=== PATIENT | male | born 1955 | race American Indian/Alaskan Native ===

== ENCOUNTER 2016-10-25 03:12 | Emergency (ER) | payer SELFPAY ==
[2016-10-25 04:15] LABS: Bilirubin,Urine NEG (Negative); Blood,Urine NEG (Negative); Ketones,Urine NEG (Negative); Leukocyte Esterase,Urine NEG (Negative); Mucus,Urine FEW /HPF; Nitrite,Urine NEG (Negative); Protein,Urine <15 mg/dL mg/dL (Negative); Urobilinogen,Urine < 2.0 mg/dL (<2.0)
[2016-10-25 07:21] VITALS: BP 125/83
--- NOTE | 2016-10-25 09:27 | Emergency Department Report ---
HPI - General Chief Complaint: Urogenital-Male Time Seen by Provider: 10/25/16 07:43 - HPI HPI: Chief complaint: Urinary retention HPI: Patient with a history of benign prostatic hypertrophy who had his Smith catheter removed on Saturday after having it for less than a week states that last night about 8 PM he started dribbling and pain increased to the point where he felt nauseous and therefore he came to the emergency department. Smith catheter was placed in triage with significant relief and 700 mL of urine output. Patient is being followed by Dr. Washington. Patient states he has been taking his Flomax. Mode of arrival: [private car] Source: [Patient] Began: see above Duration: continuous Context: see above Quality: Pressure Severity: now 0 out of 10 Improved with:catheter placement Worsened with: nothing Associated signs and symptoms:nausea ED Past Medical Hx - Past Medical History Previous Medical History?: Yes Hx Hypertension: Yes Additional medical history: ENLARGED PROSTATE - Surgical History Past Surgical History?: No - Social History Smoking Status: Never Smoker Substance Use Type: None - Medications Home Medications: Home Medications Medication Instructions Recorded Confirmed Last Taken Type Lisinopril [Zestril TAB] 40 mg PO QDAY 10/25/16 10/25/16 10/24/16 History Tamsulosin [Flomax] 0.4 mg PO QDAY 10/25/16 10/25/16 10/24/16 History ED Review of Systems ROS: Stated complaint: UNABLE TO URINATE Other details as noted in HPI ROS Constitutional: No fever ENT: No uri symptoms Cardiovascular: No chest pain Respiratory: No sob or cough GI: No nausea vomiting or diarrhea : See HPI Skin: No rash Neuro: No focal weakness or numbness Psych: No depression Alfonso/lymph: No edema Physical Exam - Physical Exam Vital Signs: Vital Signs 10/25/16 10/25/16 03:36 07:20 Temperature 97.7 F Pulse Rate 90 Respiratory 20 18 Rate Blood Pressure 135/90 Blood Pressure 125/83 [Right] O2 Sat by Pulse 96 100 Oximetry Physical Exam: GENERAL: The patient is well-developed well-nourished . HEENT: Normocephalic. Atraumatic. Extraocular motions are intact. Patient has moist mucous membranes. NECK: Normal inspection CHEST/LUNGS: There is no respiratory distress noted. ABDOMEN: Abdomen is soft, nontender. Patient has normal bowel sounds. There is no abdominal distention. SKIN: There is no rash. There is no edema. There is no diaphoresis. : Smith catheter in place. NEURO: The patient is awake, alert, and oriented. The patient is cooperative. The patient has normal speech. MUSCULOSKELETAL: Well nourished well developed ED Course Vital Signs 10/25/16 10/25/16 03:36 07:20 Temperature 97.7 F Pulse Rate 90 Respiratory 20 18 Rate Blood Pressure 135/90 Blood Pressure 125/83 [Right] O2 Sat by Pulse 96 100 Oximetry ED Medical Decision Making - Lab Data Laboratory Tests 10/25/16 03:46 Ur Specific [place] 1.010 Urine Protein <15 mg/dl Ur Leukocyte Esterase Neg Urine WBC (Auto) 1.0 Urine RBC (Auto) 2.0 Critical care attestation.: If time is entered above; I have spent that time in minutes in the direct care of this critically ill patient, excluding procedure time. ED Disposition Clinical Impression: Urinary retention Disposition: DISCHARGED TO HOME OR SELFCARE Is pt being admited?: No Does the pt Need Aspirin: No Condition: Stable Instructions: Urinary Leg Bag (GEN), Smith Catheter Placement and Care (ED) Referrals: MATHEW WASHINGTON MD [Staff Physician] - 3-5 Days Time of Disposition: 07:44
== END 2016-10-25 08:27 | disposition home or self-care (01) ==
LOC: ED 03:12
DX: R33.9 Retention of urine, unspecified (principal); R11.0 Nausea; I10 Essential (primary) hypertension
CPT/HCPCS: 51702; 81001

== ENCOUNTER 2017-05-23 12:51 | Emergency (ER) | payer OTHER ==
[2017-05-23 14:33] LABS: Bilirubin,Urine NEG (Negative); Blood,Urine MOD (Negative); Ketones,Urine TR mg/dL (Negative); Leukocyte Esterase,Urine NEG (Negative); Mucus,Urine FEW /HPF; Nitrite,Urine NEG (Negative); Protein,Urine <15 mg/dL mg/dL (Negative); Urobilinogen,Urine < 2.0 mg/dL (<2.0)
--- NOTE | 2017-05-23 14:49 | Emergency Department Report ---
ED General Adult HPI - General Chief complaint: Urogenital-Male Stated complaint: URINE RETENTION Time Seen by Provider: 05/23/17 13:17 Source: patient Mode of arrival: Ambulatory Limitations: No Limitations - History of Present Illness Initial comments: 61-year-old male with bph presents to the ED stating that he has not been able to urinate for a day. States that he is only able to dribble urine. Patient states he sees a urologist and is currently taking Flomax with no relief. Patient states that he has had catheters in place and have follow-up with urologist in the past and believes he needs same treatment here. Denies fever, dysuria, nausea, vomiting, diarrhea. -: Gradual, days(s) (1) - Related Data Home Medications Medication Instructions Recorded Confirmed Last Taken Lisinopril [Zestril TAB] 40 mg PO QDAY 10/25/16 10/25/16 10/24/16 Previous Rx's Medication Instructions Recorded Last Taken Type Tamsulosin [Flomax] 0.4 mg PO QDAY #14 capsule 05/23/17 Unknown Rx Allergies Allergy/AdvReac Type Severity Reaction Status Date / Time shrimp Allergy Itching Verified 05/23/17 13:00 ED Review of Systems ROS: Stated complaint: URINE RETENTION Other details as noted in HPI Constitutional: denies: chills, fever Eyes: denies: eye pain, eye discharge, vision change ENT: denies: ear pain, throat pain Respiratory: denies: cough, shortness of breath, wheezing Cardiovascular: denies: chest pain, palpitations Endocrine: no symptoms reported Gastrointestinal: denies: abdominal pain, nausea, diarrhea Genitourinary: urgency, frequency. denies: dysuria Musculoskeletal: denies: back pain, joint swelling, arthralgia Skin: denies: rash, lesions Neurological: denies: headache, weakness, paresthesias Psychiatric: denies: anxiety, depression Hematological/Lymphatic: denies: easy bleeding, easy bruising ED Past Medical Hx - Past Medical History Hx Hypertension: Yes Additional medical history: ENLARGED PROSTATE - Surgical History Additional Surgical History: PROSTATE BIOPSY X 2 - Social History Smoking Status: Never Smoker Substance Use Type: None - Medications Home Medications: Home Medications Medication Instructions Recorded Confirmed Last Taken Type Lisinopril [Zestril TAB] 40 mg PO QDAY 10/25/16 10/25/16 10/24/16 History Tamsulosin [Flomax] 0.4 mg PO QDAY #14 capsule 05/23/17 Unknown Rx ED Physical Exam - General Limitations: No Limitations General appearance: alert, in no apparent distress - Head Head exam: Present: atraumatic, normocephalic - Eye Eye exam: Present: normal appearance - ENT ENT exam: Present: mucous membranes moist - Neck Neck exam: Present: normal inspection - Respiratory Respiratory exam: Present: normal lung sounds bilaterally. Absent: respiratory distress - Cardiovascular Cardiovascular Exam: Present: regular rate, normal rhythm. Absent: systolic murmur, diastolic murmur, rubs, gallop - GI/Abdominal GI/Abdominal exam: Present: soft, tenderness (lower abdomen), normal bowel sounds - Rectal Rectal exam: Present: deferred - Extremities Exam Extremities exam: Present: normal inspection - Back Exam Back exam: Present: normal inspection - Neurological Exam Neurological exam: Present: alert, oriented X3 - Psychiatric Psychiatric exam: Present: normal affect, normal mood - Skin Skin exam: Present: warm, dry, intact, normal color. Absent: rash ED Course Vital Signs 05/23/17 05/23/17 13:02 15:17 Temperature 98.0 F 98.5 F Pulse Rate 116 H 83 Respiratory 18 Rate Blood Pressure 148/99 109/70 O2 Sat by Pulse 100 97 Oximetry ED Medical Decision Making - Lab Data Vital Signs 05/23/17 05/23/17 13:02 15:17 Temperature 98.0 F 98.5 F Pulse Rate 116 H 83 Respiratory 18 Rate Blood Pressure 148/99 109/70 O2 Sat by Pulse 100 97 Oximetry Laboratory Results - last 24 hr 05/23/17 14:03 Urine Color Yellow Urine Turbidity Clear Urine pH 6.0 Ur Specific [place] 1.010 Urine Protein <15 mg/dl Urine Glucose (UA) Neg Urine Ketones Tr Urine Blood Mod Urine Nitrite Neg Urine Bilirubin Neg Urine Urobilinogen < 2.0 Ur Leukocyte Esterase Neg Urine WBC (Auto) 1.0 Urine RBC (Auto) 60.0 Urine Mucus Few - Medical Decision Making patient had aout 1 liter urine come out with dominguez catheter in place. will keep the leg bag until he sees the urlogist. patient states signficant relief. urine results shows signs of hematura. NAD at this time. Critical care attestation.: If time is entered above; I have spent that time in minutes in the direct care of this critically ill patient, excluding procedure time. ED Disposition Clinical Impression: Acute urinary obstruction Disposition: DC- TO HOME OR SELFCARE Is pt being admited?: No Does the pt Need Aspirin: No Condition: Good Instructions: Benign Prostatic Hypertrophy (ED) Prescriptions: Tamsulosin [Flomax] 0.4 mg PO QDAY #14 capsule Referrals: PRIMARY CARE, [Primary Care Provider] - 3-5 Days Forms: Work/School Release Form(ED) Time of Disposition: 14:49
[2017-05-23 15:18] VITALS: BP 109/70
== END 2017-05-23 15:22 | disposition home or self-care (01) ==
LOC: ED 12:51
DX: R33.9 Retention of urine, unspecified (principal); I10 Essential (primary) hypertension; Z91.013 Allergy to seafood
CPT/HCPCS: 51702; 81001; 99283